=== PATIENT | female | born 1995 | race Caucasian/White ===

== ENCOUNTER 2022-06-24 23:06 | Outpatient (CLI) | payer MEDICAID, SELFPAY ==
[2022-06-24 22:53] VITALS: BMI 40.0
[2022-06-24 23:20] VITALS: TEMP 36
[2022-06-24 23:21] VITALS: BP 108/61; PULSE 89
[2022-06-24 23:24] VITALS: TEMP 36.2
[2022-06-24 23:36] VITALS: BP 101/57; PULSE 90
[2022-06-24 23:45] VITALS: RESP 17
[2022-06-24 23:50] VITALS: BP 100/58; PULSE 83
[2022-06-25 00:05] VITALS: BP 102/60; PULSE 81
[2022-06-25 00:20] VITALS: BP 103/56; PULSE 75
[2022-06-25 00:21] LABS: Bilirubin Urine Neg (Negative); Blood Urine 3+ (Negative); Glucose Urine UA Norm (Normal); Ketones Urine Negative (Negative); Leukocyte Esterase Urine 2+ (Negative); Nitrate Urine Negative (Negative); Protein Urine Trace (Negative); Urine Appearance SL Hazy (CLEAR); Urine Color Colorless (Yellow); Urobilinogen Urine Norm (Negative); pH Urine 6 (5-7)
[2022-06-25 00:22] LABS: Bacteria Urine 2+ /hpf; RBC Urine 40-50 /hpf (0-2); Squamous Epithelial Cell Urine 0-4 /hpf (0-5); WBC Urine 55-80 /hpf (0-5)
[2022-06-25 00:23] LABS: Add Urine Culture? Yes
[2022-06-25 00:37] VITALS: BP 112/60; PULSE 80
[2022-06-25] MEDS: cephALEXin 500 mg Capsule PO (00:48)
[2022-06-25 00:49] VITALS: BP 104/60; PULSE 85
[2022-06-25 00:50] VITALS: BP 109/53; PULSE 83
[2022-06-25 00:53] VITALS: BP 109/53; PULSE 83
== END 2022-06-25 00:53 | disposition home or self-care (01) ==
LOC: OPOB 23:12 → OBGYN 23:17
PROVIDERS: Visit Provider Obstetrics & Gynecology
DX: O26.892 Other specified pregnancy related conditions, second trimester (principal); Z3A.25 25 weeks gestation of pregnancy; R30.9 Painful micturition, unspecified; R10.9 Unspecified abdominal pain
CPT/HCPCS: 81001; 87086; 99211